=== PATIENT | female | born 1995 | race Caucasian/White ===

== ENCOUNTER 2018-06-24 05:16 | Inpatient (IN) | payer OTHER ==
[~2018-06-24] VITALS: Ht 157.5 cm; Wt 72.0 kg
[2018-06-24] MEDS ORDERED: D5%-LACTATED RINGERS 1,000 ML IV SCH (05:18)
[2018-06-24] MEDS ORDERED: OXYTOCIN 30U/ 0.9% NaCL 500ML 500 ML IV ONE (05:18)
[2018-06-24] MEDS ORDERED: OXYTOCIN 30U/ 0.9% NaCL 500ML 500 ML IV PRN (05:18)
[2018-06-24] MEDS ORDERED: FENTANYL PF 100 MCG/2ML IVPush PRN (05:30)
[2018-06-24] MEDS ORDERED: FENTANYL PF 100 MCG/2ML IV PRN (05:30)
[2018-06-24] MEDS ORDERED: ONDANSETRON 2MG/ML, 2ML IVPush PRN (05:30)
[2018-06-24] MEDS: LACTATED RINGERS 1,000 ML IV SCH ×4 (05:45→20:51)
[2018-06-24 05:50] LABS: BASOPHILS # (AUTO) 0.07 x10^3/uL (0-0.1); BASOPHILS % (AUTO) 1 % (0-1); EOSINOPHILS % (AUTO) 2 % (1-7); LYMPHOCYTES # (AUTO) 1.95 x10^3/uL (1-3.4); LYMPHOCYTES % (AUTO) 18 % (22-44); MD NO; MEAN CORPUSCULAR VOLUME 84.4 fL (80-100); MEAN PLATELET VOLUME 7.7 fL (7.4-10.4); MONOCYTES % (AUTO) 6 % (2-9); NEUTROPHILS # (AUTO) 8.09 x10^3/uL (1.8-6.8); NEUTROPHILS % (AUTO) 74 % (42-75); PLATELET COUNT 221 x10^3/uL (130-400); RED BLOOD COUNT 4.23 x10^6/uL (3.82-5.3)
[2018-06-24] MEDS ORDERED: ONDANSETRON 2MG/ML, 2ML ONE (10:36)
[2018-06-24] MEDS ORDERED: FENTANYL/BUPIV./NS/PF 250 ML EPIDCONT SCH ×2 (12:18→12:51)
[2018-06-24] MEDS ORDERED: LACTATED RINGERS 1,000 ML IV SCH (12:18)
[2018-06-24] MEDS ORDERED: BUPIVACAINE 0.25% ONE (12:19)
[2018-06-24] MEDS ORDERED: FENTANYL/BUPIV./NS/PF 250 ML EPIDCONT ONE (12:20)
[2018-06-24] MEDS ORDERED: LACTATED RINGERS 1,000 ML IVBOLUS PRN ×2 (12:30→13:00)
[2018-06-24] MEDS ORDERED: EPHEDRINE 50 MG/ML, 1ML IVPush PRN ×2 (12:30→13:00)
[2018-06-24] MEDS ORDERED: NALOXONE 0.4 MG/ML, 1ML IVPush PRN (13:00)
[2018-06-24] MEDS ORDERED: MISOPROSTOL 200 MCG TABLET ONE (18:34)
[2018-06-24] MEDS ORDERED: LIDOCAINE 1%, 20ML ONE ×3 (18:34)
[2018-06-24] MEDS ORDERED: NEWBORN KIT ONE (18:49)
[2018-06-24] MEDS ORDERED: OXYTOCIN 30U/ 0.9% NaCL 500ML 500 ML IV SCH (18:58)
[2018-06-24] MEDS: OXYTOCIN 30U/ 0.9% NaCL 500ML 500 ML IV SCH ×4 (18:58→23:16)
[2018-06-24] MEDS ORDERED: ACETAMINOPHEN 325 MG TABLET PO PRN (19:00)
[2018-06-24] MEDS ORDERED: ONDANSETRON 2MG/ML, 2ML IV PRN (19:00)
[2018-06-24] MEDS ORDERED: CALCIUM CARBONATE 500 MG TAB.CHEW PO PRN (19:00)
[2018-06-24] MEDS ORDERED: DOCUSATE 100 MG CAPSULE PO PRN (19:00)
[2018-06-24] MEDS ORDERED: METHYLERGONOVINE 0.2 MG/ML IM PRN (19:00)
[2018-06-24] MEDS ORDERED: OXYcodone/APAP 5/325MG TABLET PO PRN ×2 (19:00)
[2018-06-24] MEDS ORDERED: MISOPROSTOL 200 MCG TABLET PR PRN (19:00)
[2018-06-24] MEDS ORDERED: IBUPROFEN 600 MG TABLET ONE (19:31)
[2018-06-24] MEDS: IBUPROFEN 600 MG TABLET PO PRN (19:35)
[2018-06-24 21:00] VITALS: BP 119/62
[2018-06-25 01:00] VITALS: BP 99/63
[2018-06-25] MEDS ORDERED: IBUPROFEN 600 MG TABLET ONE ×3 (01:24→15:43)
[2018-06-25] MEDS: IBUPROFEN 600 MG TABLET PO PRN ×3 (01:26→15:45)
[2018-06-25 05:00] VITALS: BP 101/62
[2018-06-25 06:01] LABS: BASOPHILS # (AUTO) 0.11 x10^3/uL (0-0.1); BASOPHILS % (AUTO) 1 % (0-1); EOSINOPHILS # (AUTO) 0.03 x10^3/uL (0-0.4); EOSINOPHILS % (AUTO) 0 % (1-7); LYMPHOCYTES # (AUTO) 2.08 x10^3/uL (1-3.4); LYMPHOCYTES % (AUTO) 13 % (22-44); MD NO; MEAN CORPUSCULAR HGB CONC 33.2 g/dL (32.4-35.8); MEAN CORPUSCULAR VOLUME 84.4 fL (80-100); MEAN PLATELET VOLUME 7.4 fL (7.4-10.4); MONOCYTES # (AUTO) 0.97 x10^3/uL (0.2-0.8); MONOCYTES % (AUTO) 6 % (2-9); NEUTROPHILS # (AUTO) 12.61 x10^3/uL (1.8-6.8); NEUTROPHILS % (AUTO) 80 % (42-75); PLATELET COUNT 176 x10^3/uL (130-400); RED BLOOD COUNT 3.49 x10^6/uL (3.82-5.3); RED CELL DISTRIBUTION WIDTH 15.3 % (9.6-15.2)
[2018-06-25 07:40] VITALS: BP 112/75
[2018-06-25] MEDS ORDERED: PRENATAL VIT/IRON/FA 1 EACH TABLET ONE (07:49)
[2018-06-25] MEDS ORDERED: DOCUSATE 100 MG CAPSULE ONE (07:49)
[2018-06-25] MEDS ORDERED: PRENATAL VIT/IRON/FA 1 EACH TABLET PO SCH (09:00)
[2018-06-25 13:20] VITALS: BP 110/74
[2018-06-25] MEDS ORDERED: IBUP-1222 PO (14:37)
[2018-06-25 16:32] VITALS: BP 118/74
== END 2018-06-25 20:04 | disposition home or self-care (01) | DRG 807 ==
LOC: LDIP 05:16 → 2NW 20:45 → UNDODISIN 20:45
PROVIDERS: ADMIT Obstetrics & Gynecology; ATTEND Obstetrics & Gynecology
PROC: 10E0XZZ Delivery of Products of Conception, External Approach (ICD-10-PCS; principal; 2018-06-24)
PROC: 0KQM0ZZ Repair Perineum Muscle, Open Approach (ICD-10-PCS; 2018-06-24)
PROC: 10907ZC Drainage of Amniotic Fluid, Therapeutic from Products of Conception, Via Natural or Artificial Opening (ICD-10-PCS; 2018-06-24)
PROC: 3E0R3BZ Introduction of Anesthetic Agent into Spinal Canal, Percutaneous Approach (ICD-10-PCS; 2018-06-24)
PROC: 00HU33Z Insertion of Infusion Device into Spinal Canal, Percutaneous Approach (ICD-10-PCS; 2018-06-24)
DX: O76 Abnormality in fetal heart rate and rhythm complicating labor and delivery (principal); Z37.0 Single live birth; O77.0 Labor and delivery complicated by meconium in amniotic fluid; O70.1 Second degree perineal laceration during delivery; O69.3XX0 Labor and delivery complicated by short cord, not applicable or unspecified; Z3A.39 39 weeks gestation of pregnancy; Z80.3 Family history of malignant neoplasm of breast
CPT/HCPCS: 36415; 85025; 86850; 86900; G0378; J2405; J2590; J3010; J7120